=== PATIENT | female | born 1995 | race Hispanic/Latino ===

== ENCOUNTER 2021-09-27 00:36 | Emergency (ER) | payer OTHER ==
[~2021-09-27] VITALS: Ht 172.7 cm; Wt 109.8 kg
[2021-09-27] MEDS ORDERED: HYDROCHLOROTHIA25 MG PO (01:55)
[2021-09-27 02:02] VITALS: BP 150/79
== END 2021-09-27 02:02 | disposition home or self-care (01) ==
LOC: FSED 00:41
DX: R60.9 Edema, unspecified (principal); I87.2 Venous insufficiency (chronic) (peripheral); E11.9 Type 2 diabetes mellitus without complications
CPT/HCPCS: 80053; 83880; 85025; 85379; 99283

== ENCOUNTER 2022-01-04 19:06 | Emergency (ER) | payer OTHER ==
[~2022-01-04] VITALS: Ht 172.7 cm; Wt 105.2 kg
[~2022-01-04 19:06] MED LIST: HYDROCHLOROTHIA25 MG PO
[2022-01-04] MEDS ORDERED: MAALOX/LIDOCAINE/BENADRYL/NYST 30 ML BTL PO ONE (20:00)
[2022-01-04] MEDS ORDERED: BELLADONNA ALK/PHENOBARBITAL 5 ML UDC ONE (20:11)
[2022-01-04] MEDS ORDERED: LIDOCAINE VISC 2% SOLN 15 ML UDC ONE (20:11)
[2022-01-04] MEDS ORDERED: MAGNESIUM/ALUMINUM/SIMETHICONE 30 ML UDC ONE (20:11)
[2022-01-04] MEDS ORDERED: ONDANSETRON ODT4 MG PO (22:41)
[2022-01-04 22:45] VITALS: BP 132/64
[2022-01-05] MEDS ORDERED: DONNATAL/LIDOCAINE/MAALOX 30 ML SUSP PO ONE (00:30)
== END 2022-01-04 22:45 | disposition home or self-care (01) ==
LOC: FSED 19:23
DX: O26.91 Pregnancy related conditions, unspecified, first trimester (principal); R10.13 Epigastric pain; E11.9 Type 2 diabetes mellitus without complications; R16.0 Hepatomegaly, not elsewhere classified; K76.0 Fatty (change of) liver, not elsewhere classified
CPT/HCPCS: 76705; 76801; 81025; 99284

== ENCOUNTER 2022-04-10 11:32 | Emergency (ER) | payer OTHER ==
[~2022-04-10] VITALS: Ht 172.7 cm; Wt 103.0 kg
[~2022-04-10 11:32] MED LIST changes: +ONDANSETRON ODT4 MG PO
[2022-04-10] MEDS ORDERED: SODIUM CHLORIDE 0.9% 1000ML 1,000 ML IV ONE (12:00)
[2022-04-10] MEDS ORDERED: SODIUM CHLORIDE 0.9% 1000ML 1,000 ML ONE (12:25)
[2022-04-10] MEDS ORDERED: FAMOTIDINE 20 MG/2 ML VIAL IV ONE ×2 (12:25→12:30)
[2022-04-10] MEDS ORDERED: ONDANSETRON HCL INJ 2MG/ML 2ML 2 MG/ML VIAL IV STA (12:28)
[2022-04-10] MEDS ORDERED: CEFTRIAXONE 1 GM VIAL INJ ONE (12:45)
[2022-04-10] MEDS ORDERED: ONDANSETRON HCL INJ 2MG/ML 2ML 2 MG/ML VIAL ONE (12:51)
[2022-04-10] MEDS ORDERED: CEFTRIAXONE 1 GM VIAL ONE (12:52)
[2022-04-10] MEDS ORDERED: CEFTRIAXONE 1 GM in SODIUM CHLORIDE 0.9% 100 ML IV ONE (13:00)
[2022-04-10] MEDS ORDERED: KEFLEX125 MG/5 M PO (13:05)
[2022-04-10] MEDS ORDERED: PEPCID20 MG PO (13:06)
[2022-04-10 13:13] VITALS: BP 105/59
== END 2022-04-10 13:15 | disposition home or self-care (01) ==
LOC: FSED 11:45
DX: O23.42 Unspecified infection of urinary tract in pregnancy, second trimester (principal); K29.70 Gastritis, unspecified, without bleeding; K52.9 Noninfective gastroenteritis and colitis, unspecified
CPT/HCPCS: 80053; 81003; 84484; 85025; 93005; 96374; 99283; J0696; J2405; J7030

== ENCOUNTER 2024-10-02 16:03 | Emergency (ER) | payer OTHER ==
[~2024-10-02] VITALS: Ht 175.3 cm; Wt 104.3 kg
[~2024-10-02 16:03] MED LIST changes: +AMOX TR-K CLV1 EAC2 PO; +CETIRIZINE HCL10 MG PO; +KEFLEX125 MG/5 M PO; +NASACORT16.9 ML INH; +PEPCID20 MG PO
[2024-10-02 16:55] VITALS: PULSE 83; RESP 18; TEMP 97.5
[2024-10-02] MEDS: ONDANSETRON HCL 4 MG ORAL DISINTEGRATING TAB PO ONE (17:54)
[2024-10-02] MEDS ORDERED: ONDANSETRON ODT4 MG PO (19:35)
[2024-10-02 20:22] VITALS: BP 142/87; PULSE 76; RESP 16; TEMP 97.6; O2SAT 100
== END 2024-10-02 19:50 | disposition home or self-care (01) ==
LOC: FSED 16:51
DX: R10.13 Epigastric pain (principal); A08.4 Viral intestinal infection, unspecified; R11.2 Nausea with vomiting, unspecified
CPT/HCPCS: 99284; Q0162